=== PATIENT | male | born 1940 | race Caucasian/White ===

== ENCOUNTER 2022-11-05 00:29 | Day surgery (SDC) | payer OTHER, SELFPAY ==
[2022-11-04 14:54] VITALS: BMI 32.0
[2022-11-05] VITALS (17 sets, daily range): BP systolic 119–188; BP diastolic 65–89; PULSE 54–71; RESP 14–18; TEMP 36.1–36.4; O2SAT 94–100; BMI 35.9
[2022-11-05 08:17] LABS: Basophils Percent Auto 0.5 % (0.2-1.2); Eosinophils Absolute Auto 0.2 K/mm3 (0-0.3); Eosinophils Percent Auto 2.3 % (0-4.4); Hematocrit 38.9 % (42.0-52.0); Hemoglobin 11.6 g/dL (14.0-18.0); Immature Granulocyte Absolute 0.03 K/mm3 (0.00-0.031); Immature Granulocyte Percent A 0.4 % (0-0.5); Lymphocytes Absolute Auto 1.95 K/mm3 (0.9-3.2); Lymphocytes Percent Auto 25.2 % (18.3-44.2); Mean Corpuscular HGB Conc 29.8 g/dl (32-36); Mean Corpuscular Hemoglobin 26.3 pg (26-34); Mean Corpuscular Volume 88.2 fl (80-100); Mean Platelet Volume 9.2 fl (7.4-10.4); Monocytes Absolute Auto 0.7 K/mm3 (0.1-0.6); Monocytes Percent Auto 9.6 % (2.6-8.5); Neutrophils Absolute Auto 4.8 K/mm3 (1.3-6.7); Platelet Count Result 180 k/mm3 (150-375); Red Blood Count 4.41 M/mm3 (4.6-6.20); Red Cell Distribution Width 16.5 % (11.5-14.5); White Blood Count 7.7 K/mm3 (4.5-10.0)
[2022-11-05 08:28] LABS: INR 1.2; Prothrombin Time 15.6 Seconds (11.1-14.7)
[2022-11-05 08:30] LABS: Anion Gap 5 mmol/L (8-16); Blood Urea Nitrogen 28 mg/dL (9-20); Calcium 10.4 mg/dL (8.4-10.2); Carbon Dioxide 37 mmol/L (22-30); Chloride 100 mmol/L (98-107); Estimated CRCL calculation 46 ml/min; Estimated Glomerular Filt Rate 45; Glucose 96 mg/dL (65-110); Potassium 3.9 mmol/L (3.4-5.0); Sodium 142 mmol/L (137-145)
--- NOTE | 2022-11-05 10:22 | WPDHPUPDATE1 ---
History and Physical Update Update Date/Time: 11/05/22 10:22 History and Physical has been reviewed, including an updated exam of the patient. There are NO changes in the patient's condition. Risks, benefits, and alternatives have been discussed and questions answered. Patient agrees to proceed with procedure.
--- NOTE | 2022-11-05 10:22 | WPDMODSED ---
Moderate Sedation Note-Pt Data Patient Data Diagnosis: Coronary artery disease, abnormal stress test Present Complaint: Coronary artery disease, abnormal stress test Procedure to be performed/Plan: Coronary angiography, LHC, +/- PCI Allergies Allergy/AdvReac Type Severity Reaction Status Date / Time No Known Allergies Allergy Unknown Verified 11/05/22 08:08 Home Medications Medication Instructions Recorded Confirmed Type tadalafil 10 mg tablet (Cialis) 10 mg PO DAILY PRN sexual activity 04/03/21 11/04/22 Rx #30 tabs atorvastatin 80 mg tablet 80 mg PO QPM #90 tabs 05/02/22 11/05/22 Rx famotidine 20 mg tablet 20 mg PO Q12H #180 tabs 07/05/22 11/05/22 Rx furosemide 20 mg tablet 20 mg PO QAM #30 tabs 09/17/22 11/04/22 Rx lorazepam 1 mg tablet 1 mg PO BID PRN anxiety #60 tabs 10/14/22 11/05/22 Rx doxycycline hyclate 100 mg tablet See Rx Instructions .Route .COMPLEX 11/04/22 11/05/22 History isosorbide mononitrate 30 mg 30 mg PO DAILY 11/04/22 11/04/22 History tablet,extended release 24 hr rivaroxaban 20 mg tablet (Xarelto) See Rx Instructions .Route .COMPLEX 11/04/22 11/04/22 History aspirin 81 mg tablet 81 mg PO DAILY 11/05/22 11/05/22 History Current Medications: Active Medications Sodium Chloride (Normal Saline Iv) 500 mls @ 100 mls/hr IV CONT .Q5H DONNA Sedation/Anesthesia: No previous sedation/anesthesia problems (including family history). [facility] Past Medical History Medical History Afib Anemia Anxiety CAD (coronary artery disease) Chronic renal insufficiency, stage III (moderate) History of kidney cancer Stroke Surgical History Surgical History History of cholecystectomy History of heart artery stent Family History Family History Mother Family history of cardiovascular disease Family history of dementia Father Acute myocardial infarction Sibling Family history of malignant neoplasm of breast in first degree relative Social History Social History Smoking packs per day: 2 Smoking cigarettes per day: 40.0 Years smoked: 40 Smoking pack-years: 80.00 Smoking status: Former smoker Tobacco type: cigarettes Smoking end date: 05/26/02 Alcohol intake: current Alcohol use details: maybe 1 per year or less Substance use: never Substance use type: does not use Living arrangements: with family Occupation/Education: retired Gender identity (if verbalized by the patient): Male Spiritual care concerns: No Mod Sed Physical Exam Physical Exam Pre Procedural Exam: Normal: Appearance, Lungs, Heart Rate, Heart Rhythm, Neuro Exam, Abdomen, Extremities and Skin Hours since solid foods: 12 Hours since liquid intake: 8 Mallampati Classification: class III Internal Medicine - PN: Obj Da Vital Signs Vital Signs: Vital Signs - 24 hr 11/05/22 08:11 Temperature 36.4 C L Pulse Rate 59 L Respiratory Rate 18 Blood Pressure 188/71 H Pulse Oximetry 98 Oxygen Delivery Room Air Meds/Results Medications: Active Medications Generic Name Dose Route Start Last Admin Trade Name Freq PRN Reason Stop Dose Admin Sodium Chloride 500 mls @ 100 mls/hr 11/04/22 12:10 Normal Saline Iv IV CONT .Q5H DONNA Labs 11/05/22 08:07 11/05/22 08:07 Labs: Laboratory Results - last 24 hr 11/05/22 08:07 WBC 7.7 RBC 4.41 L Hgb 11.6 L Hct 38.9 L MCV 88.2 MCH 26.3 MCHC 29.8 L RDW 16.5 H Plt Count 180 MPV 9.2 Immature Gran % (Auto) 0.4 Neut % (Auto) 62.0 Lymph % (Auto) 25.2 [facility] % (Auto) 9.6 H Eos % (Auto) 2.3 Baso % (Auto) 0.5 Lymph # (Auto) 1.95 [facility] # (Auto) 0.7 H Eos # (Auto) 0.2 Baso # (Auto) 0.0 Abs Immat Gran (auto) 0.03 Absolute Neuts (auto) 4.8 Absolute Nucleated RBC 0.0 Nucleated RBC % 0
--- NOTE | 2022-11-05 10:23 | WPDCARDPROC ---
Cardiac Cath Procedure Note Date of procedure:: 11/05/22 Performing physician:: CATHETERIZATION LABORATORY REPORT Procedure Date: 11/05/2022 Sociology Research Assistant: Bull Fan M.D., [facility]? Referring Physician: Dr. Triplett ? Anesthesia: Versed and Fentanyl were ordered and given in my presence at 09:46, procedure ended at 10:13. Supervision of nurse monitored moderate sedation with Versed and Fentanyl was provided for 27 minutes. Total of Versed 2mg and Fentanyl 50mcg were administered by the Otolaryngology Nurse RN Aydee Young. Pre-op Diagnosis: Coronary artery disease Post-op Diagnosis: 1. DATA LIBRARIAN of the second diagonal branch, which is a small caliber vessel. 2. DATA LIBRARIAN of the LCX/OM system. Well-formed [id number]-[id number] collaterals fill the LCX/OM system. 3. Mild in-stent restenosis of the proximal RCA. 4. Left ventricular end-diastolic pressure 26mmHg Procedure(s): Left heart catheterization with coronary angiography Access Site: Right radial artery Brief History and Clinical Indications: Patient is an 82 year old male with coronary artery disease s/p prior PCI and known DATA LIBRARIAN of LCX and atria fibrillation who is referred for cardiac catheterization for abnormal stress test. All risks, benefits and alternatives to left heart catheterization with or without percutaneous coronary intervention was discussed at length with the patient. Risk of complications including but not limited to bleeding, infection, arrhythmia, stroke, worsening kidney function, blood loss, groin hematoma, limb loss, emergency coronary artery bypass grafting, and even were discussed with the patient and all questions were answered. The patient understood and wished to proceed. Time out called, patient name, date of , medical record number, allergies, procedure performed, identify Sociology Research Assistant, patient and staff member concurred with accurate data, procedure carried on. Findings: LEFT HEART CATHETERIZATION FINDINGS: 1. Left main: The left main coronary artery is widely patent without any significant obstructive disease. 2. Left anterior descending: The proximal and mid LAD is heavily calcific. The LAD has mild diffuse disease. 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 No obstructive disease is seen in the LAD. The first diagonal branch is a small caliber vessel without obstructive disease. The second diagonal branch is heavily calcified in its proximal portion. The proximal portion of the second diagonal branch has severe disease followed by DATA LIBRARIAN. Szah-uh-dezp collaterals fill the distal portion of the branch. 3. Left circumflex: The left circumflex artery is DATA LIBRARIAN in its proximal portion. 4. Right coronary artery: The RCA is the dominant vessel. Patent stents are visualized in the proximal and mid RCA. There is mild 40% in-stent restenosis in the proximal portion. Remainder of the RCA has mild diffuse disease without any significant obstructive angiographic disease. There are well-formed ibshd-sz-lxum collaterals filling the LCX/OM system. 5. Left ventricle: A. End-diastolic pressure 26mmHg. B. LV gram deferred. C. No significant gradient across aortic valve on catheter pullback. Description of Procedure: Informed consent signed and placed in the chart. Patient transferred to cathode ray tube salvage processor room. Prepped and draped in usual sterile fashion. 2% lidocaine injected subcutaneously in right wrist area. 22-gauge venipuncture catheter used to access the right radial artery with the Seldinger technique. 6-FR slender sheath placed in right radial artery. Nitroglycerine and Verapamil were given intraarterial through the sheath. Versacore wire advanced under fluoroscopy 5F FL 4 diagnostic catheter engaged Left Main Coronary Artery. 5F Tig 4 diagnostic catheter engaged Right Coronary Artery Multiple orthogonal angiogram obtained and reviewed 5F Pigtail diagnostic catheter crossed aortic valve to obtain LVEDP, LV angiogram deferred. Hemostasis was achieved by application
== END 2022-11-05 16:00 | disposition home or self-care (01) ==
PROVIDERS: PCP Family Medicine; Visit Provider Internal Medicine
PROC: 4A023N7 Measurement of Cardiac Sampling and Pressure, Left Heart, Percutaneous Approach (ICD-10-PCS; CPT 93452; principal; 2022-11-05 09:30)
DX: I25.10 Atherosclerotic heart disease of native coronary artery without angina pectoris (principal); R94.39 Abnormal result of other cardiovascular function study; T82.855A Stenosis of coronary artery stent, initial encounter; Y83.8 Other surgical procedures as the cause of abnormal reaction of the patient, or of later complication, without mention of misadventure at the time of the procedure; I48.20 Chronic atrial fibrillation, unspecified; I13.0 Hypertensive heart and chronic kidney disease with heart failure and stage 1 through stage 4 chronic kidney disease, or unspecified chronic kidney disease; I50.9 Heart failure, unspecified; N18.30 Chronic kidney disease, stage 3 unspecified; D64.9 Anemia, unspecified; F41.9 Anxiety disorder, unspecified; E78.2 Mixed hyperlipidemia; Z86.73 Personal history of transient ischemic attack (TIA), and cerebral infarction without residual deficits; Z85.528 Personal history of other malignant neoplasm of kidney; Z87.891 Personal history of nicotine dependence; Z95.5 Presence of coronary angioplasty implant and graft; Z79.01 Long term (current) use of anticoagulants; Z79.82 Long term (current) use of aspirin
CPT/HCPCS: 36415; 80048; 85025; 85610; 93458; A9270; C1769; C1887; C1894; J1644; J2250; J3010; J7040

== ENCOUNTER 2022-11-05 23:44 | Emergency (ER) | payer OTHER, SELFPAY ==
--- NOTE | 2022-11-05 23:55 | ED.GENADULT ---
HPI - General Adult General Stated complaint: full arrest Time Seen by Provider: 11/05/22 23:54 History of Present Illness HPI narrative: Patient 82-year-old gentleman who presents the emergency department with chief complaint of cardiac arrest. Patient underwent a diagnostic cardiac cath today as an outpatient and the last saw him about 30 minutes prior to EMS being called she found him unresponsive and did not have a pulse. When EMS arrived the patient was initially asystole ACLS was started and the patient went into V-fib patient was shocked given amiodarone initially 301 50 then was given lidocaine without return of spontaneous circulation. Upon arrival to the emergency department the patient was still and cardiac arrest. Related Data Home Medications Medication Instructions Recorded Confirmed doxycycline hyclate 100 mg tablet See Rx Instructions .Route .COMPLEX 11/04/22 11/05/22 isosorbide mononitrate 30 mg 30 mg PO DAILY 11/04/22 11/04/22 tablet,extended release 24 hr rivaroxaban 20 mg tablet (Xarelto) See Rx Instructions .Route .COMPLEX 11/04/22 11/04/22 aspirin 81 mg tablet 81 mg PO DAILY 11/05/22 11/05/22 Allergies Allergy/AdvReac Type Severity Reaction Status Date / Time No Known Allergies Allergy Unknown Verified 11/05/22 08:08 Review of Systems Review of Systems: Nursing and ancillary documentation was reviewed. ROS unobtainable: Yes unobtainable due to endotracheal tube, unobtainable due to medical condition and unobtainable due to mental status PMFSH Past Medical History Medical History Afib Anemia Anxiety CAD (coronary artery disease) Chronic renal insufficiency, stage III (moderate) History of kidney cancer Stroke Surgical History Surgical History History of cholecystectomy History of heart artery stent Family History Family History Mother Family history of cardiovascular disease Family history of dementia Father Acute myocardial infarction Sibling Family history of malignant neoplasm of breast in first degree relative Social History Social History Smoking packs per day: 2 Smoking cigarettes per day: 40.0 Years smoked: 40 Smoking pack-years: 80.00 Smoking status: Former smoker Tobacco type: cigarettes Smoking end date: 05/26/02 Alcohol intake: current Alcohol use details: maybe 1 per year or less Substance use: never Substance use type: does not use Living arrangements: with family Occupation/Education: retired Gender identity (if verbalized by the patient): Male Spiritual care concerns: No Exam Narrative: GENERAL: Unresponsive pale skin HEAD: Normocephalic, atraumatic. EYES: Pupils fixed and dilated. ENT: Nares clear, no rhinorrhea or epistaxis. Mucous membranes moist. I-gel in place NECK: Supple. CHEST: Kt device in place breath sounds equal with ventilation HEART: Absent cardiac activity. Pulses present with CPR ABDOMEN: Soft, nontender, nondistended, normal active bowel sounds. EXTREMITIES: No signs of trauma SKIN: Cool, dry, no rash. NEURO: Unresponsive. PSYCH: Unresponsive Medical Decision Making MDM Narrative Medical decision making narrative: Patient arrived to the emergency department with ACLS protocols and place. ACLS was continued in the emergency department upon 's arrival she stated that the patient had a active DNR and that she did not want him suffering with undergoing CPR. At that time the family made a decision to terminate resuscitative efforts the family was able to spend time directly with the patient patient was pronounced at 2350 Discharge Plan Discharge Clinical Impression: Cardiopulmonary arrest Patient Disposition: Condition: E
== END 2022-11-06 17:24 | disposition expired ==
PROVIDERS: Emergency Provider Emergency Medicine; PCP Family Medicine
DX: I46.9 Cardiac arrest, cause unspecified (principal); I48.91 Unspecified atrial fibrillation; I25.10 Atherosclerotic heart disease of native coronary artery without angina pectoris; N18.30 Chronic kidney disease, stage 3 unspecified; Z86.2 Personal history of diseases of the blood and blood-forming organs and certain disorders involving the immune mechanism; Z86.73 Personal history of transient ischemic attack (TIA), and cerebral infarction without residual deficits; Z85.528 Personal history of other malignant neoplasm of kidney; Z87.891 Personal history of nicotine dependence; Z95.5 Presence of coronary angioplasty implant and graft; Z90.49 Acquired absence of other specified parts of digestive tract; Z79.01 Long term (current) use of anticoagulants; Z79.82 Long term (current) use of aspirin
CPT/HCPCS: 92950; 99285; J0171; J0282